=== PATIENT | male | born 1940 | race Asian ===

== ENCOUNTER 2017-04-23 16:32 | Emergency (ER) | payer MEDICARE, MEDICAID ==
[~2017-04-23] VITALS: Ht 170.2 cm; Wt 77.1 kg
[~2017-04-23 16:32] MED LIST: ASPIR-LOW81 MG PO; LIPITOR20 MG PO; NEXIUM40 MG PO; NKM; TYLENOL325 MG ORAL
[2017-04-23 16:50] VITALS: BP 114/67
[2017-04-23] MEDS ORDERED: TYLENOL EXTRA500 MG ORAL (18:38)
[2017-04-23 18:40] VITALS: BP 115/68
[2017-04-23 18:45] VITALS: BP 115/68
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
--- NOTE | 2017-04-24 12:17 | Diagnostic Imaging Report ---
Indications: Bilateral knee pain Technique: 3 views right knee, 3 views left knee. Findings: Comparison: None No fracture, dislocation, joint space widening or effusion, lytic destruction, periosteal reaction , surrounding soft tissue swelling/foreign body/gas, or other acute changes are identified. Small osteophytes present at the margins of patellofemoral and knee joint spaces and atop the tibial spines. No significant joint space narrowing. Prominent arterial mural calcifications. No other chronic changes are demonstrated. IMPRESSION: No evidence of acute abnormality of the right or left knee Mild bilateral osteoarthritis Prominent bilateral arteriosclerosis.
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
== END 2017-04-23 18:45 | disposition home or self-care (01) ==
LOC: EMR 17:20
DX: S00.03XA Contusion of scalp, initial encounter (principal); S00.01XA Abrasion of scalp, initial encounter; Y04.2XXA Assault by strike against or bumped into by another person, initial encounter; Y92.89 Other specified places as the place of occurrence of the external cause; M17.0 Bilateral primary osteoarthritis of knee; R51 Headache; I10 Essential (primary) hypertension; E11.9 Type 2 diabetes mellitus without complications
CPT/HCPCS: 70450; 99284

== ENCOUNTER 2018-08-09 18:48 | Emergency (ER) | payer MEDICARE, MEDICAID ==
[~2018-08-09] VITALS: Ht 167.6 cm; Wt 72.6 kg
[~2018-08-09 18:48] MED LIST changes: +TYLENOL EXTRA500 MG ORAL
[2018-08-09 19:12] VITALS: BP 164/64
[2018-08-09 19:56] LABS: ANION GAP 4 mmol/L (5-15); BASOPHILS % (AUTO) 1.2 % (0.0-2.0); BLOOD UREA NITROGEN 13 mg/dL (7-18); CALCIUM 9.3 MG/DL (8.5-10.1); CARBON DIOXIDE 32 MMOL/L (21-32); CHLORIDE 101 MMOL/L (98-107); CREATININE 0.7 MG/DL (0.55-1.30); EOSINOPHILS % (AUTO) 0.3 % (0.0-3.0); HEMATOCRIT 40.4 % (42.0-52.0); HEMOGLOBIN 13.8 G/DL (14.2-18.0); MEAN CORPUSCULAR VOLUME 93 FL (80-99); MONOCYTES % (AUTO) 5.5 % (1.0-10.0); PLATELET COUNT 239 K/UL (150-450); POTASSIUM 3.9 MMOL/L (3.5-5.1); RED BLOOD COUNT 4.34 M/UL (4.70-6.10); RED CELL DISTRIBUTION WIDTH 12.1 % (11.6-14.8); SODIUM 137 MMOL/L (136-145); WHITE BLOOD COUNT 11.5 K/UL (4.8-10.8)
[2018-08-09 20:00] LABS: ALANINE AMINOTRANSFERASE 30 U/L (12-78); ALKALINE PHOSPHATASE 83 U/L (46-116); ASPARTATE AMINO TRANSFERASE 29 U/L (15-37); BILIRUBIN,TOTAL 0.9 MG/DL (0.2-1.0)
--- NOTE | 2018-08-09 20:15 | Diagnostic Imaging Report ---
EXAM: CT Abdomen and Pelvis Without Intravenous Contrast CLINICAL HISTORY: Constipation TECHNIQUE: Axial computed tomography images of the abdomen and pelvis without intravenous contrast. CTDI is 0.15, 14.12 mGy and DLP is 805 mGy-cm. One or more of the following dose reduction techniques were used: automated exposure control, adjustment of the mA and/or kV according to patient size, use of iterative reconstruction technique. COMPARISON: No relevant prior studies available. FINDINGS: Lung bases: Dependent atelectasis. Heart: Heart size enlarged. Small pericardial effusion with calcification. ABDOMEN: Liver: Cirrhotic liver. Subcentimeter densities within the right hepatic lobe which are incompletely characterized. Gallbladder and bile ducts: Unremarkable. Pancreas: Unremarkable. Spleen: Calcified granuloma in the spleen. Adrenals: Unremarkable. Kidneys and ureters: Hyperdense and low-density lesions within both kidneys which are incompletely characterized but likely represent cysts. Stomach and bowel: Moderate amount of stool within the rectum suggesting fecal impaction. No bowel obstruction. Noninflamed colonic diverticulosis. PELVIS: Appendix: Appendix is not identified. Bladder: Urinary bladder is distended. Reproductive: Unremarkable as visualized. ABDOMEN and PELVIS: Intraperitoneal space: Unremarkable. Bones/joints: No acute fracture. No dislocation. Soft tissues: Unremarkable. Vasculature: Vascular calcifications. No abdominal aortic aneurysm. Lymph nodes: Enlarged bilateral inguinal lymph nodes. IMPRESSION: 1. Moderate amount of stool within the rectum suggesting fecal impaction. No bowel obstruction. 2. Enlarged bilateral inguinal lymph nodes. Findings are nonspecific.
[2018-08-09] MEDS ORDERED: Bacitracin Oint 15gm Tube TOPIC ONE (20:36)
[2018-08-09 20:40] LABS: APPEARANCE,URINE CLEAR; BILIRUBIN, URINE NEGATIVE (NEGATIVE); GLUCOSE, URINE (UA) NEGATIVE (NEGATIVE); KETONES,URINE NEGATIVE (NEGATIVE); LEUKOCYTE ESTERASE ,URINE NEGATIVE (NEGATIVE); NITRITE,URINE NEGATIVE (NEGATIVE); PH,URINE 6 (4.5-8.0); PROTEIN,URINE NEGATIVE (NEGATIVE); UROBILINOGEN,URINE NORMAL MG/DL (0.0-1.0)
--- NOTE | 2018-08-09 20:40 | Emergency Room Report ---
History of Present Illness General Chief Complaint: Constipation Source: EMS Present Illness HPI 78year-old male patient presents ER complaining of constipation for the past 5 days. Also reports difficulty urinating during this time. denies history of prostate problems. reports urge to go complaining is not able to. Denies back pain. Denies diarrhea. Denies blood in stool. Reports small amount of stool and urine able to pass. Reports took some [id number] medication to help with passing stool however states was not helpful, doesn't remember name of medication. Denies fever, chest pain, shortness of breath. Ulcers noted on bilateral lower legs at triage, patient states that he has been scratching them. Patient states has been present for awhile. Denies denies drinking alcohol or drugs. Allergies: Coded Allergies: No Known Allergies (Unverified , 11/30/12) Patient History Past Medical History: see triage record Reviewed Nursing Documentation: PMH: Agreed; PSxH: Agreed Nursing Documentation-PMH Hx Cardiac Problems: Yes Hx Hypertension: Yes Hx Diabetes: Yes Hx Cancer: No Hx Gastrointestinal Problems: No Hx Neurological Problems: No Review of Systems All Other Systems: negative except mentioned in HPI Physical Exam Vital Signs Date Time Temp Pulse Resp B/P (MAP) Pulse Ox O2 Delivery O2 Flow Rate FiO2 08/09/18 18:39 84 18 164/64 99 Sp02 EP Interpretation: reviewed, normal General Appearance: well appearing, no apparent distress, alert, GCS 15, non- toxic Head: normocephalic, atraumatic Eyes: bilateral eye normal inspection, bilateral eye PERRL ENT: hearing grossly normal, normal pharynx, no angioedema, normal voice, uvula midline, moist mucus membranes Neck: full range of motion Respiratory: lungs clear, normal breath sounds, no rhonchi, no respiratory distress, no accessory muscle use, no wheezing, speaking full sentences Gastrointestinal: non tender, soft, no mass, non-distended, no guarding, no rebound, tenderness - LLQ and RLQ Neurologic: alert, oriented x3, responsive, motor strength/tone normal, sensory intact Psychiatric: mood/affect normal Skin: other - ulcers on bilateral anterior lower extemities, excoriations noted , dry crusting skin surrounding wet ulcers, no surrounding erythema Medical Decision Making PA Attestation Dr. Hand is my supervising Physician whom patient management has been discussed with. Diagnostic Impression: Primary Impression: Constipation Additional Impressions: Ulcers of both lower extremities Urine retention Cirrhosis ER Course Pt presents to ED c/o constipation. DDX considered but are not limited to cystitis, pyelonephritis, constipation, SBO, appendicitis, retention, BPH, peripheral vascular disease, cellulitis. VITAL SIGNS are WNL, patient is afebrile. ER COURSE straight catheter performed on patient in order obtain urine sample CBC and CMP unremarkable Lipase not elevated, within normal limits UA results unremarkable, no signs of infection. CT abdomen and pelvis shows moderate amount of stool within rectum, no SBO, cirrhosis, inguinal lymphadenopathy. Patient denies hx of drinking alcohol, reports high fat diet, advised patient against high fat diet, followup with PCP to discuss cirrhosis and further treatment and referral at that time. Discuss results with the patient. Provided patient with copy of results. Instructed patient to followup with PCP and discuss results of report with patient, discuss need for further treatment and referral. Will provide patient with Lactulose for constipation symptoms, advised to drink plenty fluids and high-fiber diet. Will provide patient with Flomax to help with urinary retention symptoms, follow up PCP and discuss need for prostate evaluation. Followup with urology specialist. bilateral lower leg shows ulcers, bacitracin applied, wounds dressed with wet to dry dressings bilaterally after cleaning thoroughly. Provided Rx for bacitracin. Patient advised not to scratch. Keep clean. Provided patient with contact information for free and low cost healthcare clinics for follow-up with them if unable to see primary care provider. Consult with DR. Hand, agrees with assessment and treatment plan. Patient ambulating independently without difficulty, reports symptoms improved while in the ER, no acute distress, nontoxic appearing, OK for discharge to home. ER precautions given. DISCHARGE: -Rx provided for Lactulose -Rx provided for Flomax -Rx provided for Bacitracin Patient resting comfortably in no acute distress, nontoxic appearing, ambulating independently, talking without difficulty, smiling and laughing. Will provide with patient care instructions and any necessary prescriptions. Patient understands and agrees to treatment plan. Patient encouraged to drink plenty of fluids. Patient to take medication as instructed. Care plan and follow-up instructions provided. Patient questions asked and answered. Patient instructed to follow-up with marine driller in 3 - 5 days. ER precautions given. Patient instructed to return to ER immediately for any new or worsening of symptoms. Including but not limited to fever, worsening pain , intractable vomiting. - Please note that this Emergency Department Report was dictated using [employer] specialist technology software, occasionally this can lead to erroneous entry secondary to interpretation by the dictation equipment. Labs Test 08/09/18 19:30 08/09/18 20:15 White Blood Count 11.5 K/UL (4.8-10.8) Red Blood Count 4.34 M/UL (4.70-6.10) Hemoglobin 13.8 G/DL (14.2-18.0) Hematocrit 40.4 % (42.0-52.0) Mean Corpuscular Volume 93 FL (80-99) Mean Corpuscular Hemoglobin 31.7 PG (27.0-31.0) Mean Corpuscular Hemoglobin Concent 34.1 G/DL (32.0-36.0) Red Cell Distribution Width 12.1 % (11.6-14.8) Platelet Count 239 K/UL (150-450) Mean Platelet Volume 5.2 FL (6.5-10.1) Neutrophils (%) (Auto) 77.0 % (45.0-75.0) Lymphocytes (%) (Auto) 16.0 % (20.0-45.0) Monocytes (%) (Auto) 5.5 % (1.0-10.0) Eosinophils (%) (Auto) 0.3 % (0.0-3.0) Basophils (%) (Auto) 1.2 % (0.0-2.0) Sodium Level 137 MMOL/L (136-145) Potassium Level 3.9 MMOL/L (3.5-5.1) Chloride Level 101 MMOL/L (98-107) Carbon Dioxide Level 32 MMOL/L (21-32) Anion Gap 4 mmol/L (5-15) Blood Urea Nitrogen 13 mg/dL (7-18) Creatinine 0.7 MG/DL (0.55-1.30) Estimat Glomerular Filtration Rate mL/min (>60) Glucose Level 126 MG/DL (74-106) Calcium Level 9.3 MG/DL (8.5-10.1) Total Bilirubin 0.9 MG/DL (0.2-1.0) Aspartate Amino Transf (AST/SGOT) 29 U/L (15-37) Alanine Aminotransferase (ALT/SGPT) 30 U/L (12-78) Alkaline Phosphatase 83 U/L (46-116) Total Protein 7.9 G/DL (6.4-8.2) Albumin 4.0 G/DL (3.4-5.0) Globulin 3.9 g/dL Albumin/Globulin Ratio 1.0 (1.0-2.7) Lipase 67 U/L (73-393) Urine Color Yellow Urine Appearance Clear Urine pH 6 (4.5-8.0) Urine Specific [place] 1.015 (1.005-1.035) Urine Protein Negative (NEGATIVE) Urine Glucose (UA) Negative (NEGATIVE) Urine Ketones Negative (NEGATIVE) Urine Blood 1+ (NEGATIVE) Urine Nitrite Negative (NEGATIVE) Urine Bilirubin Negative (NEGATIVE) Urine Urobilinogen Normal MG/DL (0.0-1.0) Urine Leukocyte Esterase Negative (NEGATIVE) Urine RBC 0-2 /HPF (0 - 0) Urine WBC 0-2 /HPF (0 - 0) Urine Squamous Epithelial Cells Occasional /LPF Urine Bacteria Few /HPF (NONE) CT/MRI/US Diagnostic Results CT/MRI/US Diagnostic Results : Imaging Test Ordered: CT abdomen pelvis Impression moderate amount of stool within the rectum, enlarged bilateral inguinal lymph nodes, cirrhotic liver distended bladder Last Vital Signs Date Time Temp Pulse Resp B/P (MAP) Pulse Ox O2 Delivery O2 Flow Rate FiO2 08/09/18 19:12 18 164/64 99 08/09/18 18:39 84 Disposition: HOME, SELF-CARE Condition: Stable Scripts Tamsulosin HCl (Flomax) 0.4 Mg Cap.er.24h 0.4 MG ORAL DAILY, #7 CAP Prov: Robert Martinez.A. 08/09/18 Lactulose (LACTULOSE*) 20 Gm/30 Ml Solution 30 ML ORAL DAILY, #120 ML 0 Refills Prov: Robert Martinez.A. 08/09/18 Bacitracin/Polymyxin B Sulfate (BACITRACIN-POLYMYXIN OINTMENT) 28.35 Gm Oint...g. 1 APPLIC TP BID, #28 GM Prov: Robert Martinez.A. 08/09/18 Referrals: NOT CHOSEN IPA/,REFERRING (PCP) Patient Instructions: Acute Urinary Retention, Male, [id number], Cirrhosis, Constipation, Adult, Fecal Impaction, Skin Ulcer, Stasis Ulcer Additional Instructions: Followup with primary care provider in 3 -5 days. Discuss referral to GI specialist. Follow-up with transportation specialist. Take medications as directed. Drink plenty of fluids and high fiber diet. Patient questions asked and answered. ER precautions given, patient instructed to return to ER immediately for any new or worsening of symptoms. Robert Martinez Aug 09, 2018 20:40
[2018-08-09 20:41] LABS: COLOR,URINE YELLOW
[2018-08-09] MEDS ORDERED: Bacitracin Oint UD TOPIC ONE (20:45)
[2018-08-09] MEDS ORDERED: LACTULOSE20 GM/301 ORAL (20:50)
[2018-08-09] MEDS ORDERED: BACITRACIN-P28.35 GM TP (20:50)
[2018-08-09] MEDS ORDERED: FLOMAX0.4 MG ORAL (20:50)
[2018-08-09 21:10] VITALS: BP 159/67
[2018-08-10] MEDS ORDERED: Bacitracin Oint 15gm Tube TOPIC SCH (09:00)
== END 2018-08-09 21:10 | disposition home or self-care (01) ==
LOC: EDBD 18:48 → EMR 19:26
DX: K59.00 Constipation, unspecified (principal); L97.929 Non-pressure chronic ulcer of unspecified part of left lower leg with unspecified severity; L97.919 Non-pressure chronic ulcer of unspecified part of right lower leg with unspecified severity; R33.9 Retention of urine, unspecified; K74.60 Unspecified cirrhosis of liver
CPT/HCPCS: 36415; 74176; 80053; 81003; 83690; 85025; 99284